=== PATIENT | female | born 2000 | race Caucasian/White ===

== ENCOUNTER 2022-07-09 01:27 | Emergency (ER) | payer MEDICAID ==
[~2022-07-09] VITALS: Ht 167.6 cm; Wt 123.0 kg
[2022-07-09 01:53] VITALS: BP 142/92
[2022-07-09] MEDS ORDERED: IBUPROFEN 600MG TABLET PO ONE (04:15)
[2022-07-09] MEDS ORDERED: IBUP-2029 MT (05:47)
== END 2022-07-09 05:50 | disposition home or self-care (01) ==
LOC: ER 01:27
DX: S60.221A Contusion of right hand, initial encounter (principal); Z98.890 Other specified postprocedural states; Y04.0XXA Assault by unarmed brawl or fight, initial encounter; Y93.89 Activity, other specified; Y92.89 Other specified places as the place of occurrence of the external cause; Y99.8 Other external cause status
CPT/HCPCS: 29125; 73130; 81025; 99283